=== PATIENT | male | born 1935 | race Two or more races ===

== ENCOUNTER 2021-08-04 19:29 | Emergency (ER) | payer OTHER, SELFPAY ==
--- NOTE | ~2021-08-04 | XR_ITS ---
EXAMINATION: XR CHEST CLINICAL INFORMATION: Cough COMPARISON: None TECHNIQUE: Frontal view of the chest was obtained. FINDINGS: The cardiac silhouette does not appear enlarged. Hilar and mediastinal contours are stable. The lungs are clear. There is no pleural effusion or pneumothorax. There are degenerative changes of the spine. XR/XR chest 1V IMPRESSION: No evidence for acute disease in the chest.
[2021-08-04 19:52] VITALS: BP 124/66; PULSE 79; RESP 19; TEMP 37.2; O2SAT 98; BMI 19.9
[2021-08-04 20:12] LABS: COVID-19 Test Positive (Negative); IDNOW Serial# 16C4AD1C
[2021-08-04 20:13] LABS: Influenza A Negative (Negative); Influenza B2 Negative (Negative)
--- NOTE | 2021-08-04 20:56 | ED_ITS ---
HPI - General Adult General Chief complaint: General Medical Stated complaint: Flu like symptoms Time Seen by Provider: 08/04/21 20:52 Source: patient and family Mode of arrival: ambulatory Limitations: no limitations History of Present Illness HPI narrative: patient diabetic with no history of chronic lung disease already been vaccinated against COVID including a booster dose comes here for last 2 3 days of nasal congestion dry cough body aches no other family member sick no shortness of breath patient is saturating 98% on arrival Related Data Previous Rx's Medication Instructions Recorded benzonatate 200 mg capsule 200 mg PO TID PRN #20 cap 08/04/21 Allergies Allergy/AdvReac Type Severity Reaction Status Date / Time No Known Allergies Allergy Verified 08/04/21 19:55 Review of Systems Review of Systems: Yes all other systems are reviewed and are negative [facility] Past Medical History Medical History Diabetes Social History Social History Advance Directives: No Advance Directives Information Provided: No Physical Exam ED Vital Signs: Vital Signs - 24 hr 08/04/21 19:52 Temperature 98.9 F Pulse Rate 79 Respiratory Rate 19 Blood Pressure 124/66 Pulse Oximetry 98 BMI result Body Mass Index 19.9 Appearance: Alert. Oriented X3. No acute distress. Eyes: no pallor or icterus ENT: Pharynx normal. Oral Mucosa moist Neck: Normal inspection. Neck supple. CVS: Normal heart rate and rhythm. Pulses normal. Respiratory: No respiratory distress. Equal air entry bilateral, no wheezing/rales/rhonchi Abdomen: Soft and nontender. Bowel sounds are present, no mass palpable, no CVA tenderness Skin: Skin warm and dry. Normal skin color. Normal skin turgor. Extremities: No lower extremity edema. No calf tenderness Neuro: Oriented X 3. No motor deficit. Medical Decision Making MDM Narrative Medical decision making narrative: patient with COVID-19 with stable vitals saturating 98% at room air chest x-ray negative for any infiltrate we will discharge patient home on supportive treatment Lab Data Lab results reviewed: Yes I reviewed the patient's lab results. Labs: Lab Results 08/04/21 08/04/21 Range/Units 19:51 19:51 COVID-19 ([facility]) Positive A (Negative) COVID-19 Clin Com See Note Influenza Type A (BILL) Negative (Negative) Influenza Type B (BILL) Negative (Negative) Influenza A & B Note See Note Discharge Plan Discharge Clinical Impression: COVID-19 Patient Disposition: Home, Self-Care Instructions: COVID-19 (Coronavirus Disease 2019) (ED) Additional Instructions: drink plenty of fluids cough drops as prescribed report to the ER if increased shortness of breath Prescriptions: New benzonatate 200 mg capsule 200 mg PO TID PRN (Reason: cough) Qty: 20 0RF
[2021-08-04] MEDS: Benzonatate 100 MG CAPSULE 200 MG PO (21:27)
== END 2021-08-04 21:28 | disposition home or self-care (01) ==
PROVIDERS: Emergency Provider Internal Medicine
DX: U07.1 COVID-19 (principal); R09.81 Nasal congestion
CPT/HCPCS: 71045; 87502; 87635; 99283

== ENCOUNTER 2022-01-03 13:24 | Emergency (ER) | payer OTHER, SELFPAY ==
--- NOTE | ~2022-01-03 | CT_ITS ---
EXAMINATION: CT LUMBAR SPINE WITHOUT CONTRAST CLINICAL INFORMATION: Low back pain. Weakness. COMPARISON: None available. TECHNIQUE: Multidetector helical imaging of the lumbar spine was obtained without intravenous contrast. Multiple axial reformats and coronal/sagittal reconstructions were created the technologist workstation for review. This CT examination was performed using dose optimization techniques as appropriate, variously including the following: *Automated exposure control. *Adjustment of mA and/or kV according to patient size (this includes techniques or standardized protocols for targeted exams where dose is matched to indication/reason for exam; i.e. extremities or head). *Use of iterative reconstruction technique. DLP: 250 mGy-cm FINDINGS: Mild left convex curvature of the lumbar spine. Stepwise retrolistheses of L1-L4. Degenerative grade 1 anterolisthesis of L4 on L5. No evidence of acute fracture or traumatic subluxation. The vertebral body heights are largely maintained. Advanced degenerative disc disease at L1-L2, L2-L3, L4-L5, and L5-S1 with vacuum disc phenomenon. There is a heterogeneous, mixed lytic and sclerotic, destructive lesion centered in the right aspect of the L5 vertebral body that extends into the right transverse process and posterior elements. Apparent erosive/resorptive changes of the posterior wall of L5. There appears to be extraosseous soft tissue extending from the L5 vertebral body into the ventral epidural space. No demonstrated additional suspicious lytic or sclerotic osseous lesions. No significant abnormalities of the paraspinal musculature. Limited evaluation of the intra-abdominal structures without significant abnormalities. The abdominal aorta is of normal contour and caliber with moderate calcific atherosclerotic disease. AXIAL SPINAL LEVELS: L1-L2: Moderate diffuse disc bulge with posterior osseous ridging. There is moderate right and mild left facet joint arthropathy. There is mild bilateral neural foraminal stenosis. There is no demonstrated spinal canal stenosis. L2-L3: Moderate diffuse disc bulge with posterior osseous ridging. There is moderate bilateral facet joint arthropathy. There is mild right and no left neural foraminal stenosis. There appears to be stenoses of the subarticular zones with no overt spinal canal stenosis centrally. L3-L4: Moderate diffuse disc bulge. There is moderate bilateral facet joint arthropathy. There is moderate right and no left neural foraminal stenosis. There appears to be moderate spinal canal stenosis. L4-L5: Prominent diffuse disc bulge exacerbated by uncovering from anterolisthesis. There is severe bilateral facet joint arthropathy. There is moderate to severe bilateral neural foraminal stenosis. There appears to be severe spinal canal stenosis. L5: There appears to be extraosseous soft tissue extending from the L5 vertebral body into the ventral epidural space. L5-S1: Mild diffuse disc bulge. There is moderate bilateral facet joint arthropathy. There is severe right and moderate left neural foraminal stenosis. There is no demonstrated spinal canal stenosis. CT/CT lumbar spine wo IV con IMPRESSION: 1. Heterogeneous, mixed lytic and sclerotic, destructive lesion within the L5 vertebra. There appears to be extraosseous soft tissue extending from the L5 vertebral body into the ventral epidural space at this level. Findings are suspicious for an underlying neoplastic process. 2. No evidence of acute fracture or traumatic subluxation of the lumbar spine. 3. Moderate multilevel degenerative spondyloarthropathy of the lumbar spine as described in detail above. Most notably on this limited exam without intrathecal contrast, there appears to be severe spinal canal stenosis at L4-L5. Moderate spinal canal stenosis at L3-L4. Moderate to severe neural foraminal stenoses from L3-S1. This critical result was discussed with Dr. Horne at 23:16 on 01/03/2022 and it was ascertained that the content and urgency of the report was understood at the time of direct communication.
[2022-01-03 15:07] VITALS: BP 133/66; PULSE 70; RESP 16; TEMP 36.5; O2SAT 98; BMI 20.1
--- NOTE | 2022-01-03 21:58 | ED_ITS ---
HPI - General Adult General Chief complaint: Weakness Stated complaint: Low Back Pain Can't Walk Time Seen by Provider: 01/03/22 21:47 Source: patient and family Limitations: no limitations History of Present Illness HPI narrative: This is an 86-year-old male with history of type 2 diabetes, who complains of increasing pain in his mid lower back with associated leg weakness and numbness progressed over the last month. The patient had had a fall about 6 months ago and had minor back pain after that. The last month however pain has become much worse and he has pain trying to get up, trying to turn over in bed. Today he he was at the point where he could not get up on his own and his son had to help him. He has had progressively worse numbness in his legs. He denies any trouble urinating but has been constipated. He has not had any fever, abdominal pain, nausea, vomiting. Denies any dysuria foot. Pain is in the midline, not worse on 1 side Related Data Previous Rx's Medication Instructions Recorded benzonatate 200 mg capsule 200 mg PO TID PRN cough #20 caps 08/04/21 Allergies Allergy/AdvReac Type Severity Reaction Status Date / Time No Known Allergies Allergy Verified 08/04/21 19:55 Review of Systems Review of Systems: Yes all other systems are reviewed and are negative Constitutional: Constitutional: Reports as per HPI and Denies fever(s) Eyes: Eyes: Reports as per HPI and Reports no additional eye complaints ENT: Reports system reviewed and no additional complaints, except as documented, Reports as per HPI, Denies nasal congestion, Denies nasal discharge and Denies sore throat Cardiovascular: Cardiovascular: Reports as per HPI, Denies chest pain and Denies dyspnea Respiratory: Respiratory: Reports as per HPI, Denies cough and Denies dyspnea Gastrointestinal: Gastrointestinal: Reports as per HPI, Denies abdominal pain, Denies diarrhea and Denies vomiting Genitourinary: Genitourinary: Reports as per HPI, Denies hematuria, Denies dysuria and Denies urinary frequency Musculoskeletal: Musculoskeletal: Reports no additional musculoskeletal complaints, Reports back pain and Reports numbness (Legs/feet) Integumentary/Breasts: Skin/Breast: Reports as per HPI and Denies rash Neurologic: Reports as per HPI, Reports focal weakness (Lower extremities) and Reports numbness (Legs/feet) Psychiatric: Psychiatric: Reports no additional psychiatric complaints and Reports as per HPI Endocrine: Endocrine: Reports no additional endocrine complaints and Reports as per HPI Hematologic/Lymphatic: Hematologic/Lymphatic: Reports no additional hematologic/lymphatic complaints, Reports as per HPI and Reports other (No peripheral edema) [facility] Past Medical History Medical History Diabetes Social History Social History Advance Directives: No Advance Directives Information Provided: No Physical Exam ED Vital Signs: Vital Signs - 24 hr 01/03/22 15:07 01/03/22 22:16 01/04/22 00:00 Temperature 97.7 F 98.0 F Pulse Rate 70 74 78 Respiratory Rate 16 Blood Pressure 133/66 134/75 148/80 H Pulse Oximetry 98 98 98 Oxygen Delivery Method Room Air Room Air Room Air BMI result Body Mass Index 20.1 Const Other: Patient not acutely ill-appearing, interacts normally, follows commands normally. General: no acute distress Orientation/consciousness: patient oriented x3 HENMT Head: Yes normal to inspection General nose exam: Normal external nose present Mouth: moist mucous membranes Throat: Yes posterior oropharynx normal, Yes tonsils normal and Yes uvula midline Eyes Eyelids: Yes eyelids normal Conjunctivae: conjunctivae normal Pupils: Equal, round and reactive pupils present Neck Neck: Yes supple Resp Effort & Inspection: normal respiratory effort Auscultation: clear to auscultation bilaterally Cardio Rate: regular rate Rhythm: regular rhythm Heart sounds: S1 normal heart sound present, S2 normal heart sound present, no gallops, no murmurs and no rubs GI Inspection: No distended Palpation (GI): Soft to palpation and nontender Auscultation: normal bowel sounds Rectal Exam - Male: Yes visual inspection normal, Yes abnormal sphincter tone (Some tone palpable when patient bears down, however overall tone seems decr) and Yes other (Patient does have anal/rectal sensation) Skin General skin exam: other (Warm and dry) Neuro Other: Subjectively decreased sensation to the lower legs and feet. Able to plantar flex and dorsiflex both feet. Straight leg test negative bilaterally when tested to about 30 degrees while supine General: patient oriented x3 and CN's II-XI intact bilaterally Cranial nerves: Yes Equal, round and reactive pupils present Extrem General: Yes no pedal edema Psych Affect: normal affect Attitude: cooperative Medical Decision Making MDM Narrative Medical decision making narrative: Patient with progressive weakness in his legs as well as midline low back pain, concerning for a spinal process causing nerve compromise. CT done without contrast did show an L5 lesion, likely malignancy, with some soft tissue impingement on the thecal sac. Patient needs MRI, neurosurgical evaluation, admission for oncology workup, probable bone scan. Patient is mildly anemic, likely anemia of chronic disease. Patient's son reports that the patient did have a recent prostate cancer screening done which he believes was negative. The case was discussed with Dr. Whitmore of neurosurgery [facility], and the patient is to be transferred to the emergency department at [facility] in [place], [place], Dr. Zoe esquivel. [facility] was called initially and had no beds available, then [facility] was also called but also had no beds available Patient is being treated with Dilaudid for pain. Lab Data Lab results reviewed: Yes I reviewed the patient's lab results. Result diagrams: 01/03/22 22:27 01/03/22 22:27 Labs: Lab Results 01/03/22 01/03/22 01/04/22 Range/Units 22:27 22:27 00:16 WBC 4.4 L (4.8-10.8) X10*3/uL RBC 3.54 L (4.60-5.80) X10*6/uL Hgb 11.2 L (14.0-18.0) g/dl Hct 32.1 L (42.0-52.0) % MCV 90.7 (80.0-98.0) fL MCH 31.6 (27.0-33.0) pg MCHC 34.9 (31.0-36.0) g/dl RDW 12.8 (11.0-16.0) % Plt Count 275 (160-400) X10*3/uL MPV 8.9 L (9.4-12.4) fL Absolute Nucleated RBC 0.000 (0.0-0.012) X10*3/uL Nucleated RBC % (auto) 0.0 (0.0-0.2) /100WBC Sodium 130 L (135-145) mmol/L Potassium 4.6 (3.3-5.1) mmol/L Chloride 94 L (96-108) mmol/L Carbon Dioxide 28 (22-29) mmol/L Anion Gap 13 (12-20) BUN 15 (9-16) mg/dL Creatinine 0.73 (0.5-1.4) mg/dL Estim Creat Clear Calc 48.3 Estimated GFR > 60 Random Glucose 164 H (60-115) mg/dL Calcium 9.2 (8.4-10.2) mg/dL Urine Color Yellow Urine Appearance Clear Urine pH 7.0 (5.0-9.0) Ur Specific [place] <= 1.005 (1.005-1.025) Urine Protein Negative (Neg-Trace) mg/dL Urine Glucose (UA) Negative (Negative) mg/dL Urine Ketones Negative (Negative) mg/dL Urine Blood Negative (Negative) Urine Nitrite Negative (Negative) Ur Leukocyte Esterase Negative (Negative) Stool Occult Blood (NEGATIVE) COVID-19 ([facility]) (Negative) COVID-19 Clin Com 01/04/22 01/04/22 Range/Units 00:16 00:17 WBC (4.8-10.8) X10*3/uL RBC (4.60-5.80) X10*6/uL Hgb (14.0-18.0) g/dl Hct (42.0-52.0) % MCV (80.0-98.0) fL MCH (27.0-33.0) pg MCHC (31.0-36.0) g/dl RDW (11.0-16.0) % Plt Count (160-400) X10*3/uL MPV (9.4-12.4) fL Absolute Nucleated RBC (0.0-0.012) X10*3/uL Nucleated RBC % (auto) (0.0-0.2) /100WBC Sodium (135-145) mmol/L Potassium (3.3-5.1) mmol/L Chloride (96-108) mmol/L Carbon Dioxide (22-29) mmol/L Anion Gap (12-20) BUN (9-16) mg/dL Creatinine (0.5-1.4) mg/dL Estim Creat Clear Calc Estimated GFR Random Glucose (60-115) mg/dL Calcium (8.4-10.2) mg/dL Urine Color Urine Appearance Urine pH (5.0-9.0) Ur Specific [place] (1.005-1.025) Urine Protein (Neg-Trace) mg/dL Urine Glucose (UA) (Negative) mg/dL Urine Ketones (Negative) mg/dL Urine Blood (Negative) Urine Nitrite (Negative) Ur Leukocyte Esterase (Negative) Stool Occult Blood NEGATIVE (NEGATIVE) COVID-19 ([facility]) Negative (Negative) COVID-19 Clin Com See Note Imaging Data CT scan - abdomen: Radiologist's impression: FINDINGS: Mild left convex curvature of the lumbar spine. Stepwise retrolistheses of L1-L4. Degenerative grade 1 anterolisthesis of L4 on L5. No evidence of acute fracture or traumatic subluxation. The vertebral body heights are largely maintained. Advanced degenerative disc disease at L1-L2, L2-L3, L4-L5, and L5-S1 with vacuum disc phenomenon. There is a heterogeneous, mixed lytic and sclerotic, destructive lesion centered in the right aspect of the L5 vertebral body that extends into the right transverse process and posterior elements. Apparent erosive/resorptive changes of the posterior wall of L5. There appears to be extraosseous soft tissue extending from the L5 vertebral body into the ventral epidural space. No demonstrated additional suspicious lytic or sclerotic osseous lesions. No significant abnormalities of the paraspinal musculature. Limited evaluation of the intra-abdominal structures without significant abnormalities. The abdominal aorta is of normal contour and caliber with moderate calcific atherosclerotic disease. AXIAL SPINAL LEVELS: L1-L2: Moderate diffuse disc bulge with posterior osseous ridging. There is moderate right and mild left facet joint arthropathy. There is mild bilateral neural foraminal stenosis. There is no demonstrated spinal canal stenosis. L2-L3: Moderate diffuse disc bulge with posterior osseous ridging. There is moderate bilateral facet joint arthropathy. There is mild right and no left neural foraminal stenosis. There appears to be stenoses of the subarticular zones with no overt spinal canal stenosis centrally. L3-L4: Moderate diffuse disc bulge.? There is moderate bilateral facet joint arthropathy. There is moderate right and no left neural foraminal stenosis. There appears to be moderate spinal canal stenosis. L4-L5: Prominent diffuse disc bulge exacerbated by uncovering from anterolisthesis.? There is severe bilateral facet joint arthropathy. There is moderate to severe bilateral neural foraminal stenosis. There appears to be severe spinal canal stenosis. L5: There appears to be extraosseous soft tissue extending from the L5 vertebral body into the ventral epidural space. L5-S1: Mild diffuse disc bulge. There is moderate bilateral facet joint arthropathy. There is severe right and moderate left neural foraminal stenosis. There is no demonstrated spinal canal stenosis. CT/CT lumbar spine wo IV con IMPRESSION: 1.? Heterogeneous, mixed lytic and sclerotic, destructive lesion within the L5 vertebra. There appears to be extraosseous soft tissue extending from the L5 vertebral body into the ventral epidural space at this level. Findings are suspicious for an underlying neoplastic process. 2.? No evidence of acute fracture or traumatic subluxation of the lumbar spine. 3.? Moderate multilevel degenerative spondyloarthropathy of the lumbar spine as described in detail above. Most notably on this limited exam without intrathecal contrast, there appears to be severe spinal canal stenosis at L4-L5. Moderate spinal canal stenosis at L3-L4. Moderate to severe neural foraminal stenoses from L3-S1. Discharge Plan Discharge Clinical Impression: Incomplete lesion of L5 level of lumbar spinal cord, initial encounter, Leg weakness Patient Disposition: Xfer [facility] Prescriptions: No Action benzonatate 200 mg capsule 200 mg PO TID PRN (Reason: cough) Qty: 20 0RF
[2022-01-03 22:16] VITALS: BP 134/75; PULSE 74; O2SAT 98
[2022-01-03 22:34] LABS: Hematocrit 32.1 % (42.0-52.0); Hemoglobin 11.2 g/dl (14.0-18.0); Mean Corpuscular HGB Conc 34.9 g/dl (31.0-36.0); Mean Corpuscular Hemoglobin 31.6 pg (27.0-33.0); Mean Corpuscular Volume 90.7 fL (80.0-98.0); Mean Platelet Volume 8.9 fL (9.4-12.4); Platelet Count 275 X10*3/uL (160-400); Red Blood Count 3.54 X10*6/uL (4.60-5.80); Red Cell Distribution Width 12.8 % (11.0-16.0); White Blood Count 4.4 X10*3/uL (4.8-10.8)
[2022-01-03 22:50] LABS: Anion Gap 13 (12-20); Blood Urea Nitrogen 15 mg/dL (9-16); Calcium 9.2 mg/dL (8.4-10.2); Carbon Dioxide 28 mmol/L (22-29); Chloride 94 mmol/L (96-108); Creatinine Clr Calc Pharmacy 48.3; Estimated Glomerular Filt Rate > 60; Glucose Random 164 mg/dL (60-115); Potassium 4.6 mmol/L (3.3-5.1); Sodium 130 mmol/L (135-145)
--- NOTE | 2022-01-03 23:19 | PC.NURSE ---
pt a&ox3, vss, pt reporting 8/10 back pain, worse w movement. per son pain intensified ~3 w ago and has been getting worse ever since with increasing leg pain. pt has appt scheduled for friday w ortho but was unable to get out of bed today 0 had been using a walker to ambulate. CT results pending, pt has a urinal for urine sample.
[2022-01-04] VITALS: BP 148/80; PULSE 78; TEMP 36.7; O2SAT 98
[2022-01-04 00:29] LABS: Appearance Urine Clear; Color Urine Yellow; Glucose Urine UA Negative (Negative); Leukocyte Esterase Urine Negative (Negative); Nitrite Urine Negative (Negative); OBS Int Ctl Valid YES; OBS1 NEGATIVE (NEGATIVE); Specific Gravity - Urine <= 1.005 (1.005-1.025); Urine Blood Negative (Negative); Urine Ketones Negative (Negative); Urine Protein Negative (Neg-Trace)
[2022-01-04 00:44] LABS: COVID-19 Test Negative (Negative)
[2022-01-04] MEDS: HYDROmorphone HCl 0.5 MG/0.5 ML SYRINGE IVPUSH (01:28)
[2022-01-04] MEDS: Sodium Chloride 0.45 % 1,000 ML 80 ML IVCONT (01:28)
--- NOTE | 2022-01-04 01:35 | PC.NURSE ---
pt change into hospital attire. medicated pt for may.
[2022-01-04 02:00] VITALS: BP 151/77; PULSE 72; RESP 17; TEMP 36.6; O2SAT 96
[2022-01-04 04:00] VITALS: BP 117/58; PULSE 73; RESP 13; TEMP 36.7; O2SAT 97
[2022-01-04 06:00] VITALS: BP 125/73; PULSE 81; RESP 15; TEMP 36.8; O2SAT 98
[2022-01-04 07:24] VITALS: BP 105/72; PULSE 76; RESP 14; TEMP 36.6; O2SAT 98
--- NOTE | 2022-01-04 10:52 | PC.NURSE ---
late [id number] EMS HERE FOR TRANSPORT TO [facility] , NURSE TO NURSE GIVEN TO [address], [id number] BENGALI SPEAKING STAFF UPDATED THE PATIENT ON THE PROCESS OF THE TRANSFER BLS CREW THEREFOR IV FLUIDS WERE D/C
== END 2022-01-04 09:36 | disposition short-term general hospital (02) ==
PROVIDERS: Emergency Provider Emergency Medicine; PCP Nurse Practitioner Family
DX: M54.50 Low back pain, unspecified (principal); R53.1 Weakness; Z20.822 Contact with and (suspected) exposure to COVID-19; Z79.899 Other long term (current) drug therapy
CPT/HCPCS: 36415; 72131; 80048; 81003; 82272; 85027; 87635; 96374; 99284; 99285; J1170

== ENCOUNTER 2022-02-15 11:21 | Outpatient (REF) | payer OTHER, SELFPAY ==
--- NOTE | ~2022-02-15 | MR_ITS ---
EXAMINATION: MR CERVICAL SPINE WITHOUT AND WITH CONTRAST CLINICAL INFORMATION: 87-year-old with history of surgery for spinal tumor, with upper extremity weakness. Evaluate for metastases. COMPARISON: None TECHNIQUE: MRI of the cervical spine was obtained using routine sequences with and without contrast. Intravenous contrast: Gadavist 5 mL. FINDINGS: Alignment: There is moderate lower cervical dextrocurvature convexity centered at C7. There is 2 mm of anterolisthesis at C4-C5 and there is mild lordotic reversal centered at C5-C6 with trace anterolisthesis at C7-T1. Craniocervical Junction/C1-C2 Articulations: The atlantooccipital joints are intact and aligned. There is hfry-ey-kakgtggl retrolisthesis at the right C1-C2 facet joint which is nonspecific associated with degenerative changes at the C1-C2 facet joints bilaterally, right more than left. Visualized Intracranial Structures: Within normal limits. Small focus of bone marrow pseudoenhancement within the clivus along the floor of the sphenoid sinus is noted which is likely secondary to incomplete fat suppression at this location. Vertebral Bodies: Vertebral body heights are well maintained. Disc Spaces and Endplates: There is hsfacfzj-wc-tpfeas intervertebral disc space height loss with disc desiccation and small Schmorl's nodes with qflk-dg-mnzlshdi spondylosis at C5-C6 and C6-C7. Moderate disc space height loss, Schmorl's nodes, disc desiccation and mild spondylosis also noted at T1-T2 and T2-T3. Multilevel disc desiccation is noted throughout the cervical and upper thoracic spine. There is minor spondylosis at C3-C4 and C4-C5 with slight disc space height loss at C4-C5. Bone Marrow: No significant marrow-replacing process or unusual bone marrow edema and no abnormal bone marrow enhancement. There are degenerative endplate marrow signal changes at C5-C6, C6-C7 and T1-T2. C2-C3: Mild disc osteophyte complex and mild flattening of the ventral dural sac without cord impingement with ligamentum flavum thickening noted without significant canal stenosis. Moderate bilateral facet arthrosis is noted without significant neural foraminal stenosis. C3-C4: Mild disc osteophyte complex noted, asymmetric to the right, with mild flattening of the ventral dural sac without cord impingement or canal stenosis. Sclcwiuy-pp-dkjenm right-sided and hmkv-hr-pbusoxkv left-sided facet arthropathy with uncovertebral spurring noted bilaterally. Qoeriymo-wv-hpfvlm right-sided and eokb-bu-sgpbimjc left-sided neural foraminal stenosis is noted. C4-C5: Broad-based disc osteophyte complex noted, asymmetric to the left, with flattening of the ventral dural sac, with ligamentum flavum buckling or thickening and moderate central spinal canal stenosis. Mild ventral cord deformity is noted, likely chronic. There is bilateral uncovertebral spurring and facet arthropathy, wqgqnukm-tx-galdzn in degree with severe left-sided and ohzs-if-kazuhkwx right-sided neural foraminal stenosis. C5-C6: Broad-based disc osteophyte complex noted with flattening of the ventral dural sac without cord impingement. Ligamentum flavum thickening is noted with mild central canal stenosis. Bilateral uncovertebral spurring is noted with bilateral facet arthropathy, left more than right, with severe left-sided neural foraminal stenosis. C6-C7: Broad-based disc osteophyte complex noted with mild flattening of the ventral dural sac with ligamentum flavum thickening without significant canal stenosis. There is uncovertebral spurring, left more than right, and facet arthropathy with moderate left-sided neural foraminal stenosis. C7-T1: Mild posterolateral disc osteophyte complex, asymmetric to the left, with ligamentum flavum thickening without significant canal stenosis. Moderate bilateral facet arthropathy noted with mild right and moderate left-sided neural foraminal stenosis. T1-T2: Partially imaged posterolateral disc osteophyte complex noted bilaterally with ligamentum flavum thickening without cord impingement or canal stenosis. Cabhbsey-dk-nxsfzq bilateral neural foraminal stenosis is noted, right more than left. Spinal Cord: The cervical and visualized upper thoracic spinal cord is normal in signal intensity throughout, without focal lesion, edema or syrinx and no abnormal enhancement. There is no abnormal leptomeningeal enhancement and no enhancing soft tissue mass to suggest metastatic disease. Extracranial Soft Tissues: The visualized extracranial head/neck soft tissues are unremarkable within the limitations of the study. MR/MR cervical spine wo/w con IMPRESSION: 1. Lower cervical dextroscoliosis with mild anterolisthesis at C4-C5 and trace anterolisthesis at C7-T1 with mild lordotic reversal centered at C5-C6. 2. Multilevel DDD and spondylosis, with multilevel disc osteophyte complexes, uncovertebral and facet arthropathy with moderate spinal canal stenosis at C4-C5 and mild spinal canal stenosis at C5-C6 with mild ventral cord deformity at C4-C5, likely chronic. 3. No evidence for spinal cord or leptomeningeal metastatic disease. No sade cord compression. 4. 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
== END 2022-02-15 11:22 | disposition home or self-care (01) ==
LOC: HO.MRI 11:21
PROVIDERS: Visit Provider Internal Medicine Medical Oncology
DX: C23 Malignant neoplasm of gallbladder (principal)
CPT/HCPCS: 72156; A9585